=== PATIENT | male | born 1975 | race Two or more races ===

== ENCOUNTER 2023-03-22 23:20 | Emergency (ER) | payer OTHER ==
[~2023-03-22] VITALS: Ht 167.6 cm; Wt 81.8 kg
[2023-03-23 03:14] VITALS: BP 105/67; PULSE 81; RESP 18; TEMP 98.2
== END 2023-03-23 04:48 | disposition home or self-care (01) ==
LOC: EMS 23:22
DX: S62.92XA Unspecified fracture of left hand, initial encounter for closed fracture (principal); M79.671 Pain in right foot; J45.909 Unspecified asthma, uncomplicated; Z98.890 Other specified postprocedural states; Y08.89XA Assault by other specified means, initial encounter; Y93.89 Activity, other specified; Y92.89 Other specified places as the place of occurrence of the external cause; Y99.8 Other external cause status
CPT/HCPCS: 99284; 73130-TC; 73630-TC; Z7502